=== PATIENT | male | born 1955 | race Caucasian/White ===

== ENCOUNTER 2017-05-18 12:32 | Emergency (ER) | payer BC ==
[2017-05-18 12:34] VITALS: BP 137/76; PULSE 85; RESP 12; TEMP 97.7; O2SAT 97
--- NOTE | 2017-05-18 13:41 | RADRPT ---
EXAM DATE/TIME: 05/18/2017 13:13 [place] COMPARISON: No previous studies available for comparison. INDICATIONS : Chest pain MEDICAL HISTORY : Cardiovascular disease. SURGICAL HISTORY : None. ENCOUNTER: Initial ACUITY: 2 days PAIN SCORE: 3/10 LOCATION: chest FINDINGS: PA and lateral views of the chest demonstrate a normal-sized cardiac silhouette. There is no effusion , consolidation, or pneumothorax. Linear opacity in one of the lower lobes represents either subsegme ntal atelectasis or scar. The bones and soft tissues demonstrate no acute abnormality. CONCLUSION: No acute cardiopulmonary abnormality is identified. There is subsegmental atelectasis versus scar in one of the lower lobes. Devin Pretty MD on May 18, 2017 at 13:38 Board Certified Radiologist. This report was verified electronically.
[2017-05-18 13:46] LABS: AUTOMATED NEUTROPHIL # 4.9 TH/MM3 (1.8-7.7); BASOPHIL # 0.1 TH/MM3 (0-0.2); BASOPHIL % 0.9 % (0.0-2.0); EOSINOPHIL # 0.3 TH/MM3 (0-0.4); EOSINOPHIL % 4.1 % (0.0-4.0); HEMATOCRIT 44.1 % (39.0-51.0); HEMO FLAGS DIFF FINAL; LYMPH % 22.8 % (9.0-44.0); LYMPHOCYTE # 1.8 TH/MM3 (1.0-4.8); MEAN CELL VOLUME 86.9 FL (80.0-100.0); MEAN CORPUSCULAR HEMOGLOBIN 29.4 PG (27.0-34.0); MEAN CORPUSCULAR HGB CONC 33.8 % (32.0-36.0); MONO % 8.3 % (0.0-8.0); NEUT % 63.9 % (16.0-70.0); PLATELET COUNT 231 TH/MM3 (150-450); RED BLOOD COUNT 5.07 MIL/MM3 (4.50-5.90); RED CELL DISTRIBUTION WIDTH 13.8 % (11.6-17.2); WHITE BLOOD COUNT 7.7 TH/MM3 (4.0-11.0)
[2017-05-18 13:48] LABS: APTT (PATIENT) 27.5 SEC (24.3-30.1); PROTHROMBIN TIME - PATIENT 10.8 SEC (9.8-11.6)
[2017-05-18 13:57] LABS: ANION GAP 8 MEQ/L (5-15); AST (GOT) 19 U/L (15-37); BICARBONATE 28.3 MEQ/L (21.0-32.0); BLOOD UREA NITROGEN 10 MG/DL (7-18); CHLORIDE 103 MEQ/L (98-107); GLOMERULAR FILTRATION RATE 106 ML/MIN (>89); MAGNESIUM 1.9 MG/DL (1.5-2.5); POTASSIUM 3.7 MEQ/L (3.5-5.1); SODIUM (NA) 139 MEQ/L (136-145)
[2017-05-18 13:59] LABS: ALT (GPT) 36 U/L (12-78)
[2017-05-18 14:02] LABS: ALKALINE PHOSPHATASE 87 U/L (45-117); TOTAL BILIRUBIN ADULT 0.3 MG/DL (0.2-1.0)
[2017-05-18 14:04] LABS: CREATINE KINASE 89 U/L (39-308)
[2017-05-18 15:03] VITALS: BP 172/86; PULSE 69; RESP 17; O2SAT 98
--- NOTE | 2017-05-18 15:25 | PD ---
HPI Chief Complaint: Chest Pain Time Seen by Provider: 14:51 Travel History International Travel<30 days: No Contact w/Intl Traveler<30days: No Traveled to known affect area: No History of Present Illness HPI The patient is a 61 year-old male who presents to the emergency department for palpitations, lightheadedness, and occasional dizziness. The patient does have a history of arrhythmia in the past and had atrial fibrillation, status post ablation April 2016. The patient then had some runs of nonsustained ventricular tachycardia and was placed on flecainide. However, the patient broke out in a rash secondary to flecainide, therefore, was changed to propafenone 225 mg 3 times a day. The patient also states verapamil 90 mg extended release daily and metoprolol XL are 12.5 mg daily. The patient took his verapamil this morning, does not take her metoprolol till the meantime. The patient did not take propafenone today because he states it elevate his blood pressure and causes a headache. The patient has had some intermittent episodes of palpitations and thinks he is having multiple PVCs. The patient denies any chest pain or shortness of breath. The patient states he had a cardiac catheterization one year ago, did not require stent placement. The patient is followed by his division supervisor in [employer], [place], Dr. Schrader. The patient is currently on vacation until next week. PFSH Past Medical History Narrative Medical Atrial fibrillation, hypertension, nonsustained ventricular tachycardia Past Surgical History Narrative Surgical Cardiac ablation Social History Tobacco Use: No Allergies-Medications (Allergen,Severity, Reaction): Coded Allergies: onion (Verified Allergy, Severe, swelling, 05/18/17) ibuprofen (Verified Allergy, Unknown, Itching, 05/18/17) Reported Meds & Prescriptions Reported Meds & Active Scripts Active Reported Metoprolol Succinate ER 24 HR (Metoprolol Succinate) 25 Mg Tab 12.5 Mg PO DAILY Propafenone HCl ER (Propafenone HCl) 225 Mg Cap 225 Mg PO TID Verapamil ER 24 HR (Verapamil HCl) 240 Mg Tab 90 Mg PO DAILY Lisinopril 5 Mg Tab 5 Mg PO DAILY Aspirin 325 Mg Tab 325 Mg PO DAILY Review of Systems Except as stated in HPI: all other systems reviewed are Neg General / Constitutional: No: Fever HENT: Positive: Lightheadedness Cardiovascular: Positive: Palpitations, Irregular Rhythm, No: Chest Pain or Discomfort, Dyspnea on exertion Respiratory: No: Shortness of Breath Gastrointestinal: No: Nausea, Vomiting Neurologic: Positive: Dizziness Physical Exam Narrative GENERAL: Awake, alert, pleasant [id number] male who appears his stated age and is in no acute respiratory distress. SKIN: Focused skin assessment warm/dry. HEAD: Atraumatic. Normocephalic. EYES: Pupils equal and round. No scleral icterus. No injection or drainage. ENT: No nasal bleeding or discharge. Mucous membranes pink and moist. NECK: Trachea midline. No JVD. CARDIOVASCULAR: Regular rate and rhythm. No murmur appreciated. Occasional irregular beats that correlate with PVC seen on monitor during exam. RESPIRATORY: No accessory muscle use. Clear to auscultation. Breath sounds equal bilaterally. GASTROINTESTINAL: Abdomen soft, non-tender, nondistended. MUSCULOSKELETAL: No obvious deformities. No clubbing. No cyanosis. No edema. NEUROLOGICAL: Awake and alert. No obvious cranial nerve deficits. Motor grossly within normal limits. Normal speech. PSYCHIATRIC: Appropriate mood and affect; insight and judgment normal. Data Data Last Documented VS Vital Signs Date Time Temp Pulse Resp B/P (MAP) Pulse Ox O2 Delivery O2 Flow Rate FiO2 05/18/17 15:03 69 17 172/86 (114) 98 Room Air 05/18/17 12:34 97.7 Orders Orders Electrocardiogram (05/18/17 12:45) Ckmb (Isoenzyme) Profile (05/18/17 12:45) Complete Blood Count With Diff (05/18/17 12:45) Comprehensive Metabolic Panel (05/18/17 12:45) Magnesium (Mg) (05/18/17 12:45) Prothrombin Time / Inr (Pt) (05/18/17 12:45) Act Partial Throm Time (Ptt) (05/18/17 12:45) Troponin I (05/18/17 12:45) Chest, Pa & Lat (05/18/17 12:45) Labs Laboratory Tests Test 05/18/17 13:05 White Blood Count 7.7 TH/MM3 Red Blood Count 5.07 MIL/MM3 Hemoglobin 14.9 GM/DL Hematocrit 44.1 % Mean Corpuscular Volume 86.9 FL Mean Corpuscular Hemoglobin 29.4 PG Mean Corpuscular Hemoglobin Concent 33.8 % Red Cell Distribution Width 13.8 % Platelet Count 231 TH/MM3 Mean Platelet Volume 9.5 FL Neutrophils (%) (Auto) 63.9 % Lymphocytes (%) (Auto) 22.8 % Monocytes (%) (Auto) 8.3 % Eosinophils (%) (Auto) 4.1 % Basophils (%) (Auto) 0.9 % Neutrophils # (Auto) 4.9 TH/MM3 Lymphocytes # (Auto) 1.8 TH/MM3 Monocytes # (Auto) 0.6 TH/MM3 Eosinophils # (Auto) 0.3 TH/MM3 Basophils # (Auto) 0.1 TH/MM3 CBC Comment DIFF FINAL Differential Comment Prothrombin Time 10.8 SEC Prothromb Time International Ratio 1.0 RATIO Activated Partial Thromboplast Time 27.5 SEC Blood Urea Nitrogen 10 MG/DL Creatinine 0.75 MG/DL Random Glucose 100 MG/DL Total Protein 6.6 GM/DL Albumin 3.6 GM/DL Calcium Level 8.8 MG/DL Magnesium Level 1.9 MG/DL Alkaline Phosphatase 87 U/L Aspartate Amino Transf (AST/SGOT) 19 U/L Alanine Aminotransferase (ALT/SGPT) 36 U/L Total Bilirubin 0.3 MG/DL Sodium Level 139 MEQ/L Potassium Level 3.7 MEQ/L Chloride Level 103 MEQ/L Carbon Dioxide Level 28.3 MEQ/L Anion Gap 8 MEQ/L Estimat Glomerular Filtration Rate 106 ML/MIN Total Creatine Kinase 89 U/L Troponin I LESS THAN 0.02 NG/ML MDM Medical Decision Making Medical Screen Exam Complete: Yes Emergency Medical Condition: Yes Medical Record Reviewed: Yes Interpretation(s) EKG reveals sinus rhythm with occasional multifocal PVC. Q wave noted in lead 3 and aVF. Differential Diagnosis Differential diagnoses includes arrhythmia, PVC, nonsustained ventricular tachycardia, electrolyte abnormality, medication side effect. Narrative Course IV was established, labs are drawn and sent, and the patient was placed on cardiac telemetry monitoring and continuous pulse oximetry monitoring. EKG was ordered and interpreted. Potassium and magnesium level were sent to lab. The patient's QTc is 425 ms. The patient's potassium and magnesium are normal. A call was placed to the patient's division supervisor at 3:15 PM. 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 I discussed the patient with his on- call division supervisor who recommends that the patient stop the propafenone and continue the verapamil and metoprolol as previously directed. He also recommends that the patient call Dr. Kirkpatrick's office to be seen in the clinic as soon as possible. These instructions were relayed to the patient. Physician Communication Physician Communication A call was placed to the patient's division supervisor in [employer], [place], at 3: 15 PM. Diagnosis Primary Impression: Symptomatic PVCs Patient Instructions: General Instructions Additional Instructions: Please provide a patient a copy of his labs and EKG results at discharge. Follow-up with gasoline dragline operator. Return if symptoms worsen or progress. Med/Other Pt SpecificInfo: Med Stopped (stop the propafenone) Disposition: 01 DISCHARGE HOME Condition: Stable Satya Frey MD May 18, 2017 15:25
[2017-05-18] MEDS ORDERED: METO1TAB42 PO (15:41)
[2017-05-18] MEDS ORDERED: PROP1CAP PO (15:41)
[2017-05-18] MEDS ORDERED: LISI-519 PO (15:41)
[2017-05-18] MEDS ORDERED: VERA1TAB17 PO (15:41)
[2017-05-18] MEDS ORDERED: ASPI-183 PO (15:41)
--- NOTE | 2017-05-19 18:24 | EKG ---
Date Performed: 05/18/2017 Time Performed: 12:58:37 PTAGE: 61 years EKG: Sinus rhythm WITH OCCASIONAL VENTRICULAR PREMATURE COMPLEXES LEFT ANTERIOR FASCICULAR BLOCK INFERIOR MYOCARDIAL I NFARCTION ABNORMAL ECG INTERPRETATION BASED ON A DEFAULT AGE OF 41 YEARS NO PREVIOUS TRACING DOCTOR: Huan Cedeno Interpretating Date/Time 05/19/2017 18:17:33
== END 2017-05-18 18:11 | disposition home or self-care (01) ==
LOC: NEPC 12:32
DX: I49.3 Ventricular premature depolarization (principal); R42 Dizziness and giddiness; I48.91 Unspecified atrial fibrillation; I44.4 Left anterior fascicular block; R94.31 Abnormal electrocardiogram [ECG] [EKG]; I25.2 Old myocardial infarction; I10 Essential (primary) hypertension; Z88.6 Allergy status to analgesic agent
CPT/HCPCS: 71020; 80053; 82550; 83735; 84484; 85025; 85610; 85730; 93005; 99285